=== PATIENT | female | born 1990 | race African-American/Black ===

== ENCOUNTER 2021-02-05 00:37 | Emergency (ER) | payer OTHER ==
[~2021-02-05] VITALS: Ht 162.6 cm; Wt 74.8 kg
[2021-02-05 01:28] LABS: PLATELET COUNT 339 K/uL (152-353)
[2021-02-05 02:07] LABS: POTASSIUM 3.4 mmol/L (3.6-5.2)
[2021-02-05 03:50] VITALS: BP 120/76; TEMP 98.4
== END 2021-02-05 03:50 | disposition short-term general hospital (02) ==
LOC: ED 00:37
PROVIDERS: Emergency Medicine Emergency Medical Services
DX: K35.890 Other acute appendicitis without perforation or gangrene (principal)
CPT/HCPCS: 36415; 80053; 81000; 81025; 82150; 83690; 85027; 87040; 96360; 96361; 96365; 96375; 99284; J2270; J2405; J2543